=== PATIENT | female | born 1940 | race Caucasian/White ===

== ENCOUNTER → 2016-12-03 | Outpatient (CLI) | payer MEDICARE, BC ==
[~2016-12-03] MED LIST: ANAS1TAB PO; ASPI-781 PO; LOSA1TAB20 PO; PRAV20TA63 PO; UBID100C24 PO; [UNRECOGNIZED DRUG - OTHER]; [UNRECOGNIZED DRUG - OTHER] PO
--- NOTE | 2016-12-03 15:37 | RADRPT ---
PROCEDURE: XR Left Hip and pelvis. CLINICAL INDICATION: Left hip pain. Pelvic pain. TECHNIQUE: Two views. Frontal pelvis and lateral left hip. COMPARISON: No prior studies are available for comparison. FINDINGS: There are bilateral total hip arthroplasties. These appear satisfactory with no fracture, dislocati on, or loosening. There is no lytic or blastic lesion. The upper pelvis is not included on the luiz ges. IMPRESSION: 1. Satisfactory postoperative appearance of both hips. RPTAT: QQ .Ethan Enriquez MD, MD Date Time Electronically viewed and signed by .Ethan Enriquez MD, MD on 12/03/2016 15:37 .R/
--- NOTE | 2016-12-03 17:25 | PN ---
Date/Time of Note Date/Time of Note DATE: 12/03/16 TIME: 17:21 Outpatient Progress Note Chief Complaint Postoperative visit 1 year after left total hip replacement. HPI 76-year-old female presents today for one-year postop visit status post left total hip arthroplasty performed on 11/29/2015. Patient denies any pain to the left hip. Patient is ambulating independently without assistance. Patient denies any complications outside of ongoing moderate to significant weakness to the left hip flexors. Patient has had past physical therapy with minimal success in regards to strengthening of the hip flexors. Denies any decreased sensation or hypersensitivity to the left lower extremity. No calf pain. No claudication. Ongoing weakness to the left hip flexors continues to be a concern for patient. Review of Systems Const: No Fever, no chills, no Fatigue, normal appetite, no diaphoresis. Resp: No SOB, no wheezing, no chest pain. CV: No chest pain, no palpitaions, no BARNES. Physical Exam Blood pressure is 136/67, temperature is 98.3, pulse is 101, respiratory rate is 12, height is 5 feet, weight is 160 pounds. General Appearance: well-developed, well-nourished, in no acute distress. Left hip: Well-healed surgical wound. Significantly limited flexion as she is able to fully extend but active flexion up to 50. Give way weakness with resistance on flexion. Full strength on extension, abduction and adduction. Ambulating normally. Normal sensory examination to light touch. X-ray of the left hip performed on 12/03/2016 showing all components appearing well aligned, attached and integrated to the bone. No signs of any lucency between metal and bone. Allergies Coded Allergies: amoxicillin (Verified Allergy, Unknown, RASH, 11/29/15) hydrocodone (Verified Allergy, Unknown, 11/29/15) oxycodone (Verified Allergy, Unknown, THROAT CONSTRICTION, 11/29/15) Family Hx Patient History: Cardiac disorder BROTHER Diabetes mellitus (DM) 32 MOTHER BROTHER FH: breast cancer AUNT COUSINS FH: stroke 32 MOTHER Hypertension 32 MOTHER BROTHER Assessment/Plan * Patient continues to do well status post surgery outside of weakness to the left hip flexors. * Patient has had direct consultation with Dr. Thayer today in which she has advised and displayed at home strengthening exercises to the hip flexors. Dr. Thayer is also made patient aware that there is decreased likelihood that she will regain full strength to the hip flexors but to remain consistent and therapy in regards to strengthening and patient states understanding. * Patient also mentions knee pain and how she had previous cortisone injections with Dr. Thayer about 6 months ago. Continuing to experience relief. Dr. Thayer is made patient aware that should she like to be seen for the bilateral knees, make an appointment when she feels ready for cortisone injection or repeat evaluation and she states understanding and compliance. She feels that she does not need to be seen for the knees at this time. * Follow-up as needed Patient was seen with Dr. Thayer and he agrees with plan. Medications Home Meds Active Scripts Aspirin* (Ecotrin*) 325 Mg Tabec, 325 MG PO BID for 45 Days Prov:CARISSASANDY 12/01/15 Reported Medications [Ca,Mg,Zinc,Vit D3] No Conflict Check, 2 TAB PO DAILY 11/29/15 Ubidecarenone (Coq-10) 100 Mg Capsule, 200 MG PO DAILY, CAP 11/29/15 [Women One A Day Vit] No Conflict Check, 1 TAB DAILY 01/14/14 Ubidecarenone (Coq-10) 100 Mg Capsule, 200 MG PO DAILY 01/14/14 Anastrozole* (Arimidex*) 1 Mg Tablet, 1 MG PO DAILY, TAB 01/14/14 Losartan-Hydrochlorothiazide (Losartan-HCTZ) 1 Each Tablet, 1 EACH PO DAILY 01/14/14 Pravastatin Sodium* (Pravastatin Sodium*) 20 Mg Tablet, 20 MG PO DAILY, TAB 01/14/14 RIKY MARY PA-C Dec 03, 2016 17:25
== END | disposition home or self-care (01) ==
LOC: HKI 13:27
DX: M62.81 Muscle weakness (generalized) (principal); Z96.642 Presence of left artificial hip joint; M25.562 Pain in left knee; M25.561 Pain in right knee
CPT/HCPCS: 73502; G0463

== ENCOUNTER → 2017-07-24 | Outpatient (CLI) | END | disposition home or self-care (01) ==